=== PATIENT | female | born 1970 | race African-American/Black ===

== ENCOUNTER 2017-06-05 15:54 | Emergency (ER) | payer OTHER ==
[~2017-06-05] VITALS: Ht 160 cm; Wt 81.6 kg
[~2017-06-05 15:54] MED LIST: BACTRIM DS TABL1 TA2 PO; BACTRIM DS TABL1 TAB PO; COMPAZINE PR; DARVOCET-N 1001 TAB PO; DIFLUCAN PO; EC-NAPROSYN500 MG PO; IBUPROFEN PO; KEFLEX PO; MEDROL PO; METRONIDAZOLE PO; RIFAMPIN300 MG PO; VICODIN PO; ZITHROMAX PO
[2017-06-05 16:26] LABS: URINE SOURCE CLEAN CATCH
[2017-06-05 16:32] LABS: URINE APPEARANCE CLEAR; URINE BILIRUBIN NEG (NEG); URINE BLOOD NEG (NEG); URINE COLOR YELLOW; URINE GLUCOSE NEG (NEG); URINE KETONE TRACE (NEG); URINE LEUKOCYTE ESTERASE 1+ (NEG); URINE NITRATE NEG (NEG); URINE PH 5.5 (5-8); URINE PROTEIN NEG (NEG); URINE SPECIFIC GRAVITY 1.025 (1.003-1.035); URINE UROBILINOGEN 0.2 MG/DL (NEG)
[2017-06-05 16:33] LABS: U HYALINE CASTS AUWI 0-2 /[LPF]; URINE BACTERIA AUWI NEG (NEGATIVE); URINE SQUAMOUS EPITHELIAL CELL FEW /[HPF]
[2017-06-05 16:35] LABS: CULTURE INDICATED? NO
== END 2017-06-05 17:00 | disposition home or self-care (01) ==
LOC: CED 15:54 → CFTX 15:54
PROVIDERS: Physician Assistant
DX: S39.012A Strain of muscle, fascia and tendon of lower back, initial encounter (principal); F17.210 Nicotine dependence, cigarettes, uncomplicated; X50.0XXA Overexertion from strenuous movement or load, initial encounter
CPT/HCPCS: 81003; 99283